=== PATIENT | female | born 1975 | race Caucasian/White ===

== ENCOUNTER 2019-04-18 19:39 | Emergency (ER) | payer BC, OTHER ==
[2019-04-18] MEDS ORDERED: NA CHLORIDE 0.9% 1,000 ML ONE (20:15)
--- NOTE | 2019-04-18 20:53 | RAD REPORT ---
EXAM DESCRIPTION: US - Abdomen Exam Limited - 04/18/2019 8:45 pm CLINICAL HISTORY: Abdominal pain. COMPARISON: None. FINDINGS: The gallbladder wall is not thickened. A gallstone is not seen. The biliary tree is normal caliber. IMPRESSION: Unremarkable gallbladder ultrasound.
[2019-04-18 20:58] LABS: Basophils % 0.6 % (0-1.3); Hematocrit 34.6 % (36.0-45.0); Lymphocytes % 29.1 % (15.3-44.8); MPV 7.8 fL (7.6-11.3)
[2019-04-18 21:05] LABS: Urine Blood NEGATIVE (NEG); Urine Glucose NEGATIVE (NEG); Urine Protein NEGATIVE (NEG); Urine Specific Gravity 1.015 (1.005-1.030); Urine pH 8.5 (5.0-7.0)
[2019-04-18 21:12] LABS: ALT/SGPT 17 U/L (12-78); AST/SGOT 15 U/L (15-37); Albumin 3.8 g/dL (3.4-5.0); Alkaline Phosphatase 64 U/L (45-117); BUN Blood Urea Nitrogen 16 mg/dL (7-18); Bicarbonate 30 mmol/L (21-32); Bilirubin Direct < 0.1 mg/dL (0-0.2); Bilirubin Total 0.3 mg/dL (0.2-1.0); Glucose Level 88 mg/dL (74-106); Lipase 165 U/L (73-393); Potassium 3.6 mmol/L (3.5-5.1); Protein, Total 7.4 g/dL (6.4-8.2); Sodium Level 139 mmol/L (136-145)
--- NOTE | 2019-04-18 22:57 | ER ---
Nurse's Notes [facility] Name: Lucille Osuna Age: 43 yrs Sex: Female : 1975 Arrival Date: 04/18/2019 Time: 19:43 Bed 25 Private MD: Diagnosis: Abdominal pain. Ruptured right ovarian cyst Presentation: 04/18 19:57 Presenting complaint: Patient states: she has been having abdominal since 1729 the pain bb is a dull ache which turns into a stabbing pain pt denies nausea or vomiting but had 2 episodes of diarrhea today. Transition of care: patient was not received from another setting of care. Onset of symptoms was April 18, 2019. Risk Assessment: Do you want to hurt yourself or someone else? Patient reports no desire to harm self or others. Initial Sepsis Screen: Does the patient meet any 2 criteria? No. Patient's initial sepsis screen is negative. Does the patient have a suspected source of infection? No. Patient's initial sepsis screen is negative. Care prior to arrival: None. 19:57 Method Of Arrival: Ambulatory bb 19:57 Acuity: JOSHUA 3 bb Triage Assessment: 19:59 General: Appears in no apparent distress. uncomfortable, Behavior is calm, cooperative. bb Pain: Complains of pain in abdomen Pain currently is 7 out of 10 on a pain scale. Pain began 1729. Neuro: Level of Consciousness is awake, alert, obeys commands, Oriented to person, place, time, situation. GI: Reports lower abdominal pain, diarrhea. 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 - Social history:: Smoking status: Patient/guardian denies using tobacco. - Ebola Screening: : No symptoms or risks identified at this time. Screenin:39 Abuse screen: Denies threats or abuse. Denies injuries from another. Nutritional mg2 screening: No deficits noted. Tuberculosis screening: No symptoms or risk factors identified. Fall Risk IV access (20 points). Assessment: 20:38 General: Appears in no apparent distress. comfortable, Behavior is calm, cooperative. mg2 Pain: Complains of pain in right upper quadrant Pain does not radiate. Pain currently is 3 out of 10 on a pain scale. Quality of pain is described as aching, sharp, Pain began gradually. Neuro: Level of Consciousness is awake, alert, obeys commands, Oriented to person, place, time, situation. Cardiovascular: Capillary refill < 3 seconds Patient's skin is warm and dry. Respiratory: Airway is patent Respiratory effort is even, unlabored, Respiratory pattern is regular, symmetrical. GI: Bowel sounds present X 4 quads. Abd is soft and non tender X 4 quads. Reports upper abdominal pain. : Urine is cloudy. EENT: No signs and/or symptoms were reported regarding the EENT system. Derm: Skin is intact, is healthy with good turgor, Skin is pink, warm \T\ dry. normal. Musculoskeletal: Circulation, motion, and sensation intact. Capillary refill < 3 seconds. 21:30 Reassessment: Patient appears in no apparent distress at this time. Patient and/or tr5 family updated on plan of care and expected duration. Pain level reassessed. Patient is alert, oriented x 3, equal unlabored respirations, skin warm/dry/pink. Vital Signs: 19:59 BP 119 / 84; Pulse 81; Resp 16 S; Temp 98.9(O); Pulse Ox 100% on R/A; Weight 72.57 kg bb (R); Height 5 ft. 1 in. (154.94 cm) (R); Pain 7/10; 21:00 BP 100 / 72; Pulse 76; Resp 16; Pulse Ox 100% on R/A; tr5 19:59 Body Mass Index 30.23 (72.57 kg, 154.94 cm) bb ED Course: 19:43 Patient arrived in ED. ds1 19:59 Triage completed. bb 19:59 Arm band placed on Patient placed in an exam room, on a stretcher, on pulse oximetry. bb 20:02 Devyn Brock MD is Attending Physician. pkl 20:14 Jayme Ratliff, JOESPH is Primary Nurse. mg2 20:39 Patient has correct armband on for positive identification. Pulse ox on. NIBP on. Door mg2 closed. Warm blanket given. 20:40 No provider procedures requiring assistance completed. Inserted saline lock: 20 gauge mg2 in right antecubital area, using aseptic technique. Blood collected. 20:45 US Abdomen Limited In Process Unspecified. EDMS 22:20 CT Abd/Pelvis - IV Contrast Only In Process Unspecified. EDMS 23:05 IV discontinued. tr5 Administered Medications: 20:38 Drug: NS 0.9% 1000 ml Route: IV; Rate: 125 ml/hr; Site: right antecubital; mg2 21:50 Drug: morphine 2 mg {Note: RASS:0.} Route: IVP; Site: right antecubital; tr5 23:05 Follow up: Response: Pain is decreased; RASS: Alert and Calm (0) tr5 21:50 Drug: Zofran 4 mg Route: IVP; Site: left antecubital; tr5 23:05 Follow up: Response: Marked relief of symptoms tr5 Outcome: 22:56 Discharge ordered by . tien 23:04 Discharged to home ambulatory. tr5 23:04 Condition: stable 23:04 Discharge instructions given to patient, family, Instructed on discharge instructions, follow up and referral plans. medication usage, Demonstrated understanding of instructions, follow-up care, medications, Prescriptions given X 2. 23:06 Patient left the ED. tr5 Signatures: Dispatcher [employer] Devyn Garibay MD MD pkl Sanford, Demi ds1 Raven Poole RN RN bb Jayme Ratliff RN RN mg2 Davey Renteria RN RN tr5
--- NOTE | 2019-04-18 22:57 | EDPHYS ---
Physician Documentation [facility] Name: Lucille Osuna Age: 43 yrs Sex: Female : 1975 Arrival Date: 04/18/2019 Time: 19:43 Bed 25 Private MD: ED Physician Devyn Brock HPI: 04/18 20:12 This 43 yrs old Female presents to ER via Ambulatory with complaints of pkl Abdominal Pain. 20:12 The patient presents with abdominal pain in the right upper quadrant. Onset: The pkl symptoms/episode began/occurred just prior to arrival, 3 hour(s) ago. Associated signs and symptoms: Pertinent positives: nausea. The symptoms are described as dull, stabbing. 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 - Social history:: Smoking status: Patient/guardian denies using tobacco. - Ebola Screening: : No symptoms or risks identified at this time. ROS: 20:12 Eyes: Negative for injury, pain, redness, and discharge, ENT: Negative for injury, pkl pain, and discharge, Neck: Negative for injury, pain, and swelling, Cardiovascular: Negative for chest pain, palpitations, and edema, Respiratory: Negative for shortness of breath, cough, wheezing, and pleuritic chest pain. 20:12 Abdomen/GI: Positive for abdominal pain, of the right upper quadrant. 20:12 Back: Negative for acute changes. 20:12 : Negative for urinary symptoms. 20:12 MS/extremity: Negative for acute changes. 20:12 Skin: Negative for rash. 20:12 Neuro: Negative for altered mental status. Exam: 20:12 Head/Face: Normocephalic, atraumatic. Eyes: Pupils equal round and reactive to light, pkl extra-ocular motions intact. Lids and lashes normal. Conjunctiva and sclera are non-icteric and not injected. Cornea within normal limits. Periorbital areas with no swelling, redness, or edema. ENT: Nares patent. No nasal discharge, no septal abnormalities noted. Tympanic membranes are normal and external auditory canals are clear. Oropharynx with no redness, swelling, or masses, exudates, or evidence of obstruction, uvula midline. Mucous membranes moist. Neck: Trachea midline, no thyromegaly or masses palpated, and no cervical lymphadenopathy. Supple, full range of motion without nuchal rigidity, or vertebral point tenderness. No Meningismus. Chest/axilla: Normal chest wall appearance and motion. Nontender with no deformity. No lesions are appreciated. Cardiovascular: Regular rate and rhythm with a normal S1 and S2. No gallops, murmurs, or rubs. Normal PMI, no JVD. No pulse deficits. Respiratory: Lungs have equal breath sounds bilaterally, clear to auscultation and percussion. No rales, rhonchi or wheezes noted. No increased work of breathing, no retractions or nasal flaring. 20:12 Abdomen/GI: Bowel sounds: normal, Palpation: soft, mild abdominal tenderness, in the right upper quadrant. 20:12 Back: Exam negative for acute changes. 20:12 : Exam negative for acute changes. 20:12 Musculoskeletal/extremity: Exam is negative for acute changes. 20:12 Skin: Exam negative for rash. 20:12 Neuro: Orientation: is normal, Mentation: is normal, Cranial nerves: grossly normal, Motor: is normal. Vital Signs: 19:59 BP 119 / 84; Pulse 81; Resp 16 S; Temp 98.9(O); Pulse Ox 100% on R/A; Weight 72.57 kg bb (R); Height 5 ft. 1 in. (154.94 cm) (R); Pain 7/10; 21:00 BP 100 / 72; Pulse 76; Resp 16; Pulse Ox 100% on R/A; tr5 19:59 Body Mass Index 30.23 (72.57 kg, 154.94 cm) bb MDM: 20:02 Patient medically screened. pkl 22:54 Data reviewed: vital signs, nurses notes, lab test result(s), radiologic studies, CT pkl scan, ultrasound. 04/18 20:11 Order name: Basic Metabolic Panel; Complete Time: 21:36 pkl 04/18 20:11 Order name: CBC with Diff; Complete Time: 21:36 pkl 04/18 20:11 Order name: Creatinine for Radiology; Complete Time: 21:36 pkl 04/18 20:11 Order name: Hepatic Function; Complete Time: 21:36 pkl 04/18 20:11 Order name: Lipase; Complete Time: 21:36 pkl 04/18 20:38 Order name: Urine Dipstick--Ancillary (enter results); Complete Time: 21:36 ar5 04/18 20:11 Order name: IV Saline Lock; Complete Time: 20:38 pkl 04/18 20:11 Order name: Labs collected and sent; Complete Time: 20:38 pkl 04/18 20:11 Order name: US Abdomen Limited; Complete Time: 21:36 pkl 04/18 20:38 Order name: Urine --Ancillary (enter results); Complete Time: 21:36 ar5 04/18 21:40 Order name: CT Abd/Pelvis - IV Contrast Only pkl Administered Medications: 20:38 Drug: NS 0.9% 1000 ml Route: IV; Rate: 125 ml/hr; Site: right antecubital; mg2 21:50 Drug: morphine 2 mg {Note: RASS:0.} Route: IVP; Site: right antecubital; tr5 23:05 Follow up: Response: Pain is decreased; RASS: Alert and Calm (0) tr5 21:50 Drug: Zofran 4 mg Route: IVP; Site: left antecubital; tr5 23:05 Follow up: Response: Marked relief of symptoms tr5 Disposition: 04/18/19 22:56 Discharged to Home. Impression: Abdominal pain. Ruptured right ovarian cyst. - Condition is Stable. - Prescriptions for Ultram 50 mg Oral Tablet - take 1 tablet by ORAL route every 8 hours As needed; 12 tablet. Zofran 4 mg Oral Tablet - take 1 tablet by ORAL route every 12 hours As needed; 6 tablet. - Medication Reconciliation Form, Thank You Letter, Antibiotic Education, Prescription Opioid Use form. - Follow up: Private Physician; When: 2 - 3 days; Reason: Re-evaluation by your physician. - Problem is new. - Symptoms have improved. Signatures: Dispatcher [employer] EDMS Devyn Brock MD MD pkl Ballard, Brenda, RN RN bb Jayme Ratliff RN RN mg2 Rodriguez, Tommie, RN RN tr5 Corrections: (The following items were deleted from the chart) 23:06 22:56 04/18/2019 22:56 Discharged to Home. Impression: Abdominal pain. Ruptured right tr5 ovarian cyst. Condition is Stable. Forms are Medication Reconciliation Form, Thank You Letter, Antibiotic Education, Prescription Opioid Use. Follow up: Private Physician; When: 2 - 3 days; Reason: Re-evaluation by your physician. Problem is new. Symptoms have improved. pkl
[2019-04-18 23:26] VITALS: TEMP 98.9; O2SAT 100
[2019-04-18 23:28] VITALS: BP 100/72
--- NOTE | 2019-04-19 11:24 | RAD REPORT ---
EXAM DESCRIPTION: CT - Abdomen Pelvis W Contrast - 04/19/2019 12:48 am CLINICAL HISTORY: 43 years Female ABD PAIN TECHNIQUE: Contiguous axial images obtained through the abdomen and pelvis following intravenous con trast administration. Coronal and sagittal reformatted images provided. This CT exam was performed according to our departmental dose-optimization program, which includes on e or more of the following dose reduction techniques: automated exposure control, adjustment of the m A and/or kV according to patient size, and/or use of iterative reconstruction technique. COMPARISON: No prior exams provided for comparison. FINDINGS: Small collapsed right ovarian corpus luteum with trace free fluid in the cul-de-sac. Kiera l left ovary. Intrauterine device in place. No bowel inflammation, obstruction, or free intraperitoneal air. Normal appendix. Minimal atelectasis at the lung bases. The liver, biliary tree, gallbladder, pancreas, spleen, adrena l glands, kidneys, urinary bladder, and osseous structures demonstrate no acute findings. Small bilat eral renal cysts. IMPRESSION: Small collapsed right ovarian corpus luteum with trace free fluid in the cul-de-sac are physiologic in appearance. No acute abdominal or pelvic abnormalities. Electronically signed by: Jailene Simmons MD 04/18/2019 10:46 PM VP TREASURER Due to temporary technical issues with the PACS/Fluency reporting system, reports are being signed by the in house radiologist as a courtesy to ensure prompt reporting. The interpreting radiologist is f ully responsible for the content of the report.
== END 2019-04-18 23:06 | disposition home or self-care (01) ==
LOC: ER 19:39
DX: N83.201 Unspecified ovarian cyst, right side (principal)
CPT/HCPCS: 85025; 80048; 36415; 81025; 80076; 81003; 83690; 74177; 76705; 96375; 96374; 99284; Q9967; J7030

== ENCOUNTER 2024-05-02 23:34 | Emergency (ER) | payer SELFPAY ==
--- OUTSIDE RECORDS SUMMARY | 2024-05-02 23:37 | XMS REPORT | Continuity of Care Document ---
Author Name Unknown Address [address] [facility] [address] [place] [address] [facility] thconnect Address [address] [facility] [address] [place] [address] Care Team Providers Care Production Supervisor Name Role Phone Rajwinder Ramachandran Primary Care Physician [phone] CEDRICK JARRELL Attending Clinician UnavailCEDRICK Holland Attending Clinician Unavailab RAJWINDER Tamayo Attending Clinician Unavailable AMANDA THOMPSON Attending Clinician Unavailable Rajwinder Ramachandran Attending Clinician 2, [facility] Attending Clinician Unavailable Payers Payer Name Policy Type Policy Number Effective Date Expirati on Date Source [facility] [id number] 2023 00:00:00 Allergies, Adverse Reactions, Alerts Allergy Name Allergy Type Status Severity Reaction(s) Onset Date Inactive Date Treating Clinician Comments Source Fluoride Propensi ty to adverse reaction s Active Swelling 07-06 00:00: 00 [facility] FLUORIDE DRUG INGREDI Active Swelling 07-06 00:00: 00 [facility] NO KNOWN ALLERGIE S Drug Class Active [facility] Social History Social Habit Start Date Stop Date Quantity Comments Source Sexual [facility] Alcoholic beverage intake 2024-01-09 00:00:00 2024-01-09 00:00:00 Lifetime non-drinker (finding) [facility] Tobacco use and exposure 2023-07-06 00:00:00 2023-07-06 00:00:00 Smokeless tobacco non-user [facility] Alcohol intake 2023-07-06 00:00:00 2023-07-06 00:00:00 Lifetime non-drinker (finding) [facility] History of Social function 2023-07-06 00:00:00 2023-07-06 00:00:00 [facility] Sex assigned at 1975 00:00:00 1975 00:00:00 [facility] Smoking Status Start Date Stop Date Source Never smoked tobacco [facility] Medications Ordered Medication Name Filled Medication Name Start Date Stop Date Current Medication? Ordering Clinician Indication Dosage Frequency Signature (SIG) Comments Components Source EPINEPHrine (EPIPEN) 0.3 mg/0.3 mL injection 01-08 00:00: 00 Yes [id number] .3mg 0.3 mL by Intramuscu lar route as needed for Allergic reaction. [facility] predniSONE 5 mg tablet 01-08 00:00: 00 Yes [id number] TAKE 4 TABLETS X 5 DAYS, 3 TABLETS X 5 DAYS, 2 TABLETS X 5 DAYS, 1 TABLET X 5 DAYS THEN STOP [facility] predniSONE 5 mg tablet 611 00:00: 00 01-08 00:00 :00 No 5mg Take 1 tablet by mouth in the morning. TAKE 4 TABLETS X 5 DAYS, 3 TABLETS X 5 DAYS, 2 TABLETS X 5 DAYS, 1 TABLET X 5 DAYS THEN STOP50 tablets [facility] Vital Signs Vital Name Observation Time Observation Value Comments S vazquez Systolic blood pressure 2024-01-09 16:40:00 100 mm[Hg] [facility] Diastolic blood pressure 2024-01-09 16:40:00 66 mm[Hg] [facility] Heart rate 2024-01-09 16:40:00 81 /min Unive [facility] Body temperature 2024-01-09 16:40:[address] [facility] Body height 2024-01-09 16:40:00 154.9 cm [facility] Body weight 2024-01-09 16:40:00 84.006 kg [facility] BMI 2024-01-09 16:40:00 34.99 kg/m2 [facility] Oxygen saturation in Arterial blood by Pulse oximetry 2024-01-09 16:40:00 100 /min [facility] Systolic blood pressure 2023-07-06 20:33:00 118 mm[Hg] [facility] Diastolic blood pressure 2023-07-06 20:33:00 76 mm[Hg] [facility] Heart rate 2023-07-06 20:33:00 78 /min [facility] Body temperature 2023-07-06 20:33:[address] [facility] Respiratory rate 2023-07-06 20:33:00 18 /min [facility] Body height 2023-07-06 20:33:00 162.6 cm [facility] Body weight 2023-07-06 20:33:00 84.052 kg [facility] BMI 2023-07-06 20:33:00 31.81 kg/m2 [facility] Oxygen saturation in Arterial blood by Pulse oximetry 2023-07-06 20:33:00 100 /min [facility] Procedures Procedure Date / Time Performed Performing Clinician Source FREE T4 2023-07-06 21:11:00 Rajwinder Tompkins [facility] THYROID STIMULATING HORMONE 2023-07-06 21:11:[address] [facility] COMP. METABOLIC PANEL (19157) 2023-07-06 21:11:[address] [facility] LIPID PANEL (21826)(TOTAL CHOLESTEROL, TRIGLYCERIDES, HDL) 2023-07-06 21:11:[address] [facility] CBC WITH DIFF 2023-07-06 21:11:00 Rajiwnder Tompkins [facility] GLYCOSYLATED HEMOGLOBIN (A1C) 2023-07-06 21:11:[address] [facility] URINALYSIS 2023-07-06 21:11:00 Rajwinder Tompkins [facility] HCV ANTIBODY 2023-07-06 21:11:00 Rajwinder Tompkins [facility] Encounters Start Date/Time End Date/Time Encounter Type Admission Type Attending [facility] Care Department Encounter ID Source 2024-01-09 11:30:00 2024-01-09 12:17:39 Outpatient R CHRYSTALLIZ SUAREZKeerthiGuillermo CHRYSTAL CEDRICK [facility] [id number] [facility] 2024-01-09 11:30:00 2024-01-09 12:17:39 Office Visit ChrystalToshia suarezritu [facility] [id number] [facility] 2024-01-05 10:00:00 2024-01-05 10:00:00 Outpatient R CHRYSTAL TOSHIADARIUSGuillermo JARRELL CEDRICK [facility] [id number] [facility] 2023-07-27 09:00:00 2023-07-27 09:00:00 Outpatient R AMANDA THOMPSON [facility] [id number] [facility] 2023-07-17 10:30:00 2023-07-17 10:30:00 Outpatient RAJWINDER GARCIA [facility] [id number] [facility] 2023-07-13 08:30:00 2023-07-13 08:30:00 Outpatient AMANDA JAVED [facility] [id number] [facility] 2023-07-12 00:00:00 2023-07-12 00:00:00 Telephone [facility] [id number] [facility] 2023-07-06 16:00:00 2023-07-06 16:00:00 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 [id number] [id number] [id number] [facility] 2023-07-06 14:00:00 2023-07-06 14:52:17 Outpatient R NARENDRA [facility]UL [facility] [id number] [facility] 2023-07-06 14:00:00 2023-07-06 14:52:17 Office Visit Rajwinder Tompkins [facility] [id number] [id number] [id number] [facility] Results Test Description Test Time Test Comments Results Result Co mments Source [facility] [id number] 11:18:04* Test Item Value Reference Range Interpretation Comme nts HCV Ab (test code = 74888-5) Negative HCV Semi-Quantitative (test code = 19042-7) 0.01 [facility]2023-07-07 01:21:35* Test Item Value Reference Range Interpretation Comme [facility] HGB A1C (test code = 4548-4) 5.2 % 4.0-5.7 LIZZETTE (test code = LIZZETTE) Reference RangesNormal: <5.7%Prediabetes: 5.7 - 6.4%Diabetes: > 6.5% Lab Interpretation (test code = 26744-0) Normal [facility]A1C)2023-07-07 01:21:35* Test Item Value Reference Range Interpretation Comme [facility] HGB A1C (test code = 4548-4) 5.2 % 4.0-5.7 LIZZETTE (test code = LIZZETTE) Reference RangesNormal: <5.7%Prediabetes: 5.7 - 6.4%Diabetes: > 6.5% Lab Interpretation (test code = 58515-0) Normal [facility] with [id number] 22:06:49* Test Item Value Reference Range Interpretation Comme nts WBC (test code = 6690-2) 6.41 See_Comment [Automated messa ge] The system which generated this result transmitted reference range: 4.30 - 11.10 10*3/?L. The reference range was not used to interpret this result as normal/abnormal. RBC (test code = 789-8) 4.13 See_Comment [Automated Furiousa ge] The system which generated this result transmitted reference range: 3.93 - 5.25 10*6/?L. The reference range was not used to interpret this result as normal/abnormal. HGB (test code = 718-7) 12.6 g/dL 11.6-15.0 HCT (test code = 4544-3) 38.1 % 35.7-45.2 MCV (test code = 787-2) 92.3 fL 80.6-95.5 MCH (test code = 785-6) 30.5 pg 25.9-32.8 MCHC (test code = 786-4) 33.1 g/dL 31.6-35.1 RDW-SD (test code = 53080-5) 43.7 fL 39.0-49.9 RDW-CV (test code = 788-0) 13.1 % 12.0-15.5 PLT (test code = 777-3) 298 See_Comment [Automated Furiousa ge] The system which generated this result transmitted reference range: 166 - 358 10*3/?L. The reference range was not used to interpret this result as normal/abnormal. MPV (test code = 95423-2) 9.7 fL 9.5-12.9 NRBC/100 WBC (test code = 7915686086) 0.0 See_Comment [Automated me ssage] The system which generated this result transmitted reference range: 0.0 - 10.0 /100 WBCs. The reference range was not used to interpret this result as normal/abnormal. NRBC x10^3 (test code = 9864488239) See_Comment [Automated me ssage] The system which generated this result transmitted reference range: 10*3/?L. The reference range was not used to interpret this result as normal/abnormal. GRAN MAT (NEUT) % (test code = 770-8) 61.5 % IMM GRAN % (test code = 1451319129) 0.20 % LYMPH % (test code = 736-9) 27.0 % MONO % (test code = 5905-5) 5.1 % EOS % (test code = 713-8) 5.6 % BASO % (test code = 706-2) 0.6 % GRAN MAT x10^3(ANC) (test code = 8375264862) 3.94 10*3/uL 1.88-7.09 IMM GRAN x10^3 (test code = 0415992206) 0.00-0.06 LYMPH x10^3 (test code = 731-0) 1.73 10*3/uL 1.32-3.29 MONO x10^3 (test code = 742-7) 0.33 10*3/uL 0.33-0.92 EOS x10^3 (test code = 711-2) 0.36 10*3/uL 0.03-0.39 BASO x10^3 (test code = 704-7) 0.04 10*3/uL 0.01-0.07 [facility] with [id number] 22:06:49* Test Item Value Reference Range Interpretation Comme nts WBC (test code = 6690-2) 6.41 See_Comment [Automated Furiousa ge] The system which generated this result transmitted reference range: 4.30 - 11.10 10*3/?L. The reference range was not used to interpret this result as normal/abnormal. RBC (test code = 789-8) 4.13 See_Comment [Automated Furiousa ge] The system which generated this result transmitted reference range: 3.93 - 5.25 10*6/?L. The reference range was not used to interpret this result as normal/abnormal. HGB (test code = 718-7) 12.6 g/dL 11.6-15.0 HCT (test code = 4544-3) 38.1 % 35.7-45.2 MCV (test code = 787-2) 92.3 fL 80.6-95.5 MCH (test code = 785-6) 30.5 pg 25.9-32.8 MCHC (test code = 786-4) 33.1 g/dL 31.6-35.1 RDW-SD (test code = 90999-7) 43.7 fL 39.0-49.9 RDW-CV (test code = 788-0) 13.1 % 12.0-15.5 PLT (test code = 777-3) 298 See_Comment [Automated messa ge] The system which generated this result transmitted reference range: 166 - 358 10*3/?L. The reference range was not used to interpret this result as normal/abnormal. MPV (test code = 20007-5) 9.7 fL 9.5-12.9 NRBC/100 WBC (test code = 6176398256) 0.0 See_Comment [Automated me ssage] The system which generated this result transmitted reference range: 0.0 - 10.0 /100 WBCs. The reference range was not used to interpret this result as normal/abnormal. NRBC x10^3 (test code = 7067938757) See_Comment [Automated me ssage] The system which generated this result transmitted reference range: 10*3/?L. The reference range was not used to interpret this result as normal/abnormal. GRAN MAT (NEUT) % (test code = 770-8) 61.5 % IMM GRAN % (test code = 8589286213) 0.20 % LYMPH % (test code = 736-9) 27.0 % MONO % (test code = 5905-5) 5.1 % EOS % (test code = 713-8) 5.6 % BASO % (test code = 706-2) 0.6 % GRAN MAT x10^3(ANC) (test code = 3596481608) 3.94 10*3/uL 1.88-7.09 IMM GRAN x10^3 (test code = 1201565438) 0.00-0.06 LYMPH x10^3 (test code = 731-0) 1.73 10*3/uL 1.32-3.29 MONO x10^3 (test code = 742-7) 0.33 10*3/uL 0.33-0.92 EOS x10^3 (test code = 711-2) 0.36 10*3/uL 0.03-0.39 BASO x10^3 (test code = 704-7) 0.04 10*3/uL 0.01-0.07 [facility] Notes Date/Time Note Provider Source 2023-07-14 14:05:44 Spoke with patient and informed jai message below. TOR Dorothy Valles MA [facility] 2023-07-14 14:00:53 Unfortunately I do not have records of her most recent PAP Does she have a date of her last PAP? I know her OBGYN has retired [facility] 2023-07-12 14:42:23 Routing to provider. [facility] 2023-07-12 14:34:19 Lucille Osuna is a 48 year old female Pt states today is her last day of her insurance and wanted to know if CLAYTON Tompkins can place a script for the Nuva Ring sent too [facility] in [place] today if possible. TOR Kiera Dhaliwal [facility] 2023-07-06 16:00:00 Images from the original note were not included. Venipuncture collection performed by clean technique on the right anticubitus. Total of 1 attempts were made. Slight pressure and a bandage/dressing were applied to the site(s). The patient experienced no complications. The following specimens were processed according to instructions and sent to [facility] laboratories per lab order on 07/06/2023 : LT BLUE SST 2 RED LAV 2 PPT DK GREEN (LiHep) DK GREEN (SodH) GRIMES DK BLUE (K2) DK BLUE (S) ACD Blood Culture NIPT/NTD Patient has been identified by and name and was provided with cup, antiseptic towelette, and clean catch instructions. 1 urine specimen(s) sent. Unpreserved 1 Urine Culture Aptima tube Other urine [facility]
[2024-05-03] MEDS ORDERED: NA CHLORIDE 0.9% 500 ML ONE (00:48)
[2024-05-03 00:49] LABS: Calcium Oxalate Crystals- Ur Few /HPF (None Seen); Specific Gravity > 1.030 (1.005-1.030); Urine Bacteria 20-50 /HPF (<20); Urine Bilirubin NEGATIVE (Negative); Urine Blood 3+ (OVER) (Negative); Urine Clarity Extremely Turbid (Clear); Urine Color Yellow (Yellow); Urine Culture Reflex Order REFLEXED; Urine Glucose NEGATIVE (Negative); Urine Ketones TRACE (Negative); Urine Microscopic Reflex YN ORDER UMIC; Urine Mucus 4+ /HPF (None Seen); Urine Nitrite NEGATIVE (Negative); Urine Protein 1+ (Negative); Urine Urobilinogen 1+ (Normal)
[2024-05-03 00:53] LABS: Absolute Basophils 0.1 K/uL (0-0.5); Absolute Eosinophils 0.3 K/uL (0-0.5); Absolute Lymphocytes (CBC) 1.1 K/uL (0.7-4.9); Absolute Monocytes 0.5 K/uL (0.1-1.3); Absolute Neutrophil 5.4 K/uL (1.8-8.0); Basophils % 0.9 % (0-1.3); Hematocrit 39.5 % (36.0-45.0); Hemoglobin 13.2 g/dL (12.0-15.0); Lymphocytes % 15.2 % (15.3-44.8); MCH 30.4 pg (27.0-35.0); MCHC 33.5 g/dL (32.0-36.0); MCV 90.9 fL (80-100); MPV 7.5 fL (7.6-11.3); Monocytes % 6.7 % (3.3-12.3); Neutrophils % 73.2 % (41.7-73.7); Platelets 304 thou/uL (152-406); RBC Red Blood Cell Count 4.35 M/uL (3.86-4.86); Red Cell Distribution Width 14.3 % (12.1-15.2)
[2024-05-03 01:03] LABS: Anion Gap 7.5 mEq/L (5.0-15.0); BUN Blood Urea Nitrogen 19 mg/dL (7-18); Bicarbonate 27 mEq/L (21-32); Glomerular Filtration Rate 78 ml/min (=/>90); Glucose Level 120 mg/dL (74-106); Potassium 3.5 mEq/L (3.5-5.1); Sodium Level 141 mEq/L (136-145)
[2024-05-03 01:06] LABS: HCG, Quantitative < 1 mIU/mL (1-3)
[2024-05-03 01:17] LABS: SARS-CoV-2 Antigen CONTROL BLUE LINE VIS/BG OK; SARS-CoV-2 Antigen Rapid Res Negative (Negative)
--- NOTE | 2024-05-03 02:17 | RAD REPORT ---
EXAM DESCRIPTION: Transvaginal OB CLINICAL HISTORY: 48 years Female, Miscarriage 1 week ago COMPARISON: None. TECHNIQUE: Complete first trimester obstetrical ultrasound obtained with transvaginal imaging. FINDINGS: Uterus: The uterus measures 6.5 x 5.1 x 5.1 cm. Endometrial thickness of 1.3 cm. Gestational sac: Not identified. pole: Not identified. heart motion: Not identified. Yolk sac: Not identified. Placenta: Not identified. Right ovary: The right ovary measures 3.3 x 2.5 x 2.1 cm. Left ovary: The left ovary is not visualized due to overlying bowel gas. Adnexa: Additional adnexal findings. Free fluid: No free fluid. Duplex imaging: Color and spectral Doppler imaging demonstrate blood flow in the ovaries. IMPRESSION: 1. No intrauterine identified. No ultrasound evidence of retained products of conception. Electronically signed by: Amadou Vargas DO 05/03/2024 02:14 AM [facility] 4ZDM Due to temporary technical issues with the PACS/Emergent Labsibe reporting system, reports are being signed by the in-house radiologist without review as a courtesy to ensure prompt reporting. The interpreting radiologist is fully responsible for the content of the report. Transcribed Date/Time: 05/03/2024 2:17 AM
--- NOTE | 2024-05-03 02:18 | EDPHYS ---
Physician Documentation [facility] Name: Lucille Osuna Age: 48 yrs Sex: Female : 1975 Arrival Date: 05/02/2024 Time: 23:34 Bed 15 Private MD: ED Physician Estrellita Her HPI: 05/03 00:13 This 48 yrs old Female presents to ER via Ambulatory with complaints of Fever, sp3 Dizziness. 00:13 48-year-old female with no reported past medical history presents with dizziness and sp3 fatigue with concerns of anemia. Patient states that she had a spontaneous miscarriage when she "did not even know she was " with an approximate time period from her prior menses of 10 weeks. Patient states she was 3 hours away from the nearest hospital and had a miscarriage consisting of tissue and bleeding. She has had continued bleeding since then with only spotting currently. She denies any abdominal pain or cramping, dysuria, urinary frequency, vaginal discharge just spotting. She has not sought any medical care since that event. Yesterday she reported fever subjectively with bodyaches. She also states that both of her children have been "sick from getting bugs at school". No objectively documented fever however patient states that she felt subjectively fever only. She denies any cough, sore throat, vomiting, diarrhea or any other signs or symptoms on ROS.. 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 - Infectious Disease History:: Denies. - Social history:: Smoking status: Patient denies any tobacco usage or history of. ROS: 00:15 Eyes: Negative for injury, pain, redness, and discharge, Neck: Negative for injury, sp3 pain, and swelling, Cardiovascular: Negative for chest pain, palpitations, and edema, Abdomen/GI: Negative for abdominal pain, nausea, vomiting, diarrhea, and constipation, Back: Negative for injury and pain, MS/Extremity: Negative for injury and deformity, Skin: Negative for injury, rash, and discoloration, Neuro: Negative for headache, weakness, numbness, tingling, and seizure, Psych: Negative for depression, anxiety, suicide ideation, homicidal ideation, and hallucinations, Allergy/Immunology: Negative for hives, rash, and allergies, Endocrine: Negative for neck swelling, polydipsia, polyuria, polyphagia, and marked weight changes, 00:15 All other systems are negative, Exam: 00:16 Constitutional: This is a well developed, well nourished patient who is awake, alert, sp3 and in no acute distress. Head/Face: Normocephalic, atraumatic. Eyes: Pupils equal round and reactive to light, extra-ocular motions intact. Lids and lashes normal. Conjunctiva and sclera are non-icteric and not injected. Cornea within normal limits. Periorbital areas with no swelling, redness, or edema. ENT: Nares patent. No nasal discharge, no septal abnormalities noted. External auditory canals are clear. Oropharynx with no redness, swelling, or masses, exudates, or evidence of obstruction, uvula midline. Mucous membranes moist. Neck: Trachea midline, no thyromegaly or masses palpated, and no cervical lymphadenopathy. Supple, full range of motion without nuchal rigidity, or vertebral point tenderness. No Meningismus. Chest/axilla: Normal chest wall appearance and motion. Nontender with no deformity. No lesions are appreciated. Cardiovascular: Regular rate and rhythm with a normal S1 and S2. No gallops, murmurs, or rubs. Normal PMI, no JVD. No pulse deficits. Respiratory: Lungs have equal breath sounds bilaterally, clear to auscultation and percussion. No rales, rhonchi or wheezes noted. No increased work of breathing, no retractions or nasal flaring. Abdomen/GI: Soft, non-tender, with normal bowel sounds. No distension or tympany. No guarding or rebound. No evidence of tenderness throughout. Back: No spinal tenderness. No costovertebral tenderness. Full range of motion. Skin: Warm, dry with normal turgor. Normal color with no rashes, no lesions, and no evidence of cellulitis. MS/ Extremity: Pulses equal, no cyanosis. Neurovascular intact. Full, normal range of motion. Neuro: Awake and alert, GCS 15, oriented to person, place, time, and situation. Cranial nerves II-XII grossly intact. Motor strength 5/5 in all extremities. Sensory grossly intact. Cerebellar exam normal. Normal gait. Psych: Awake, alert, with orientation to person, place and time. Behavior, mood, and affect are within normal limits. Vital Signs: 05/02 23:47 BP 119 / 83; Pulse 83; Resp 17 S; Temp 97.4; Pulse Ox 99% on R/A; Weight 74.84 kg; ha1 Height 5 ft. 3 in. ; 05/03 00:36 BP 115 / 81; Pulse 81; Resp 16; Pulse Ox 98% ; Pain 0/10; dd2 01:30 BP 119 / 83; Pulse 79; Resp 16; Pulse Ox 99% ; dd2 02:36 BP 110 / 78; Pulse 78; Resp 16; Pulse Ox 100% ; dd2 02:56 BP 116 / 75; Pulse 76; Resp 16; Temp 98.1; Pulse Ox 99% ; Pain 0/10; dd2 05/02 23:47 Body Mass Index 29.23 (74.84 kg, 160.02 cm) ha1 05/03 00:36 Pain Scale: Adult dd2 02:56 Pain Scale: Adult dd2 [place] Coma Score: 00:36 Eye Response: spontaneous(4). Motor Response: obeys commands(6). Verbal Response: dd2 oriented(5). Total: 15. MDM: 05/02 23:37 Medical Screening Exam initiated sp3 05/03 00:16 Data reviewed: vital signs, nurses notes, lab test result(s), radiologic studies. ED sp3 course: 38-year-old female with no past medical history now with dizziness and fatigue with probable miscarriage and continued very mild vaginal bleeding without seeking any medical care to date. She also reports fever possible infectious light. Differential diagnosis includes viral illness, anemia, and to a much lower extent or likelihood of retained products of conception. No abdominal tenderness noted so ureteritis is very low on the differential. Workup will include ultrasound of the transvaginal approach, laboratory values, UA and swabs with IV fluids and general supportive care. If workup negative we will safely discharge patient home to PCP follow-up.. 02:17 ED course: Workup negative, ultrasound negative for any retained products, hCG sp3 negative. Patient has positive UTI on UA and we will administer Rocephin IV and discharge her home on Bactrim p.o.. 05/03 00:13 Order name: Abo/rh Typing; Complete Time: 02:16 sp3 05/03 00:13 Order name: Basic Metabolic Panel; Complete Time: 02:16 sp3 05/03 00:13 Order name: CBC with Diff; Complete Time: 02:16 sp3 05/03 00:13 Order name: Quantitative Hcg; Complete Time: 02:16 sp3 05/03 00:13 Order name: Urinalysis w/ reflexes; Complete Time: 02:16 sp3 05/03 00:13 Order name: SARS RAPID; Complete Time: 02:16 sp3 05/03 00:13 Order name: Flu; Complete Time: 02:16 sp3 05/03 00:52 Order name: Urine Culture EDMS 05/03 00:13 Order name: US Transvaginal Ob; Complete Time: 02:19 sp3 05/03 00:13 Order name: IV Saline Lock; Complete Time: 00:35 sp3 05/03 00:13 Order name: Labs collected and sent; Complete Time: 00:35 sp3 05/03 00:13 Order name: NPO; Complete Time: 00:35 sp3 Administered Medications: 00:55 Drug: NS 0.9% IV 500 ml IV at calculated rate once; to be given as a bolus over 30 dd2 minutes Route: IV; Rate: calculated rate; Site: right antecubital; 01:10 Follow up: Response: No adverse reaction dd2 01:25 Follow up: IV Status: Completed infusion; IV Intake: 500ml dd2 02:52 Drug: Rocephin IV 1 grams IV at calculated rate once; Given slow IV push per pharmacy dd2 instructions Route: IV; Rate: calculated rate; Site: right antecubital; 03:06 Follow up: Response: Medication administered at discharge.; IV Status: Completed dd2 infusion Disposition Summary: 05/03/24 02:18 Discharge Ordered Notes: Location: Home sp3 Condition: Stable sp3 Diagnosis - UTI sp3 Followup: sp3 - With: Private Physician - When: Upon discharge from the Emergency Department - Reason: Continuance of care Discharge Instructions: - Discharge Summary Sheet sp3 - Urinary Tract Infection, Adult sp3 Forms: - Medication Reconciliation Form sp3 - Antibiotic Education sp3 - Prescription Opioid Use sp3 - Patient Portal Instructions sp3 - Leadership Thank You Letter sp3 Prescriptions: - Bactrim DS 800-160 mg Oral Tablet - take 1 tablet ORAL route every 12 hours for 3 days; 6 tablet; Refills: 0, sp3 Product Selection Permitted Signatures: Dispatcher [employer] Estrellita Shaw MD MD sp3 Verna Do RN RN ha1 GLADIS WILLOUGHBY RN RN dd2
--- NOTE | 2024-05-03 02:18 | ER ---
Nurse's Notes [facility] Name: Lucille Osuna Age: 48 yrs Sex: Female : 1975 Arrival Date: 05/02/2024 Time: 23:34 Bed 15 Private MD: Diagnosis: UTI Presentation: 05/02 23:47 Chief complaint: Patient states: MISCARRIAGE ONE WEEK AGO, FEELING DIZZY, AND WEAK. ha1 23:47 Coronavirus screen: Vaccine status: Patient reports being unvaccinated. Ebola Screen: ha1 No symptoms or risks identified at this time. Initial Sepsis Screen: Does the patient meet any 2 criteria? No. Patient's initial sepsis screen is negative. Does the patient have a suspected source of infection? No. Patient's initial sepsis screen is negative. Risk Assessment: Do you want to hurt yourself or someone else? Patient reports no desire to harm self or others. Onset of symptoms was May 03, 2024. 23:47 Method Of Arrival: Ambulatory ha1 23:47 Acuity: JOSHUA 3 ha1 Triage Assessment: 23:47 General: Appears uncomfortable, Behavior is calm, cooperative. Pain: Denies pain. ha1 Neuro: Level of Consciousness is awake, alert, obeys commands, Oriented to person, place, time, situation. 23:47 Neuro: Reports dizziness, weakness. Cardiovascular: Patient's skin is warm and dry. ha1 Respiratory: Airway is patent Respiratory effort is even, unlabored, Respiratory pattern is regular, symmetrical. Derm: Skin is pink, warm \T\ dry. Musculoskeletal: Circulation, motion, and sensation intact. Range of motion: intact in all extremities. 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 - Infectious Disease History:: Denies. - Social history:: Smoking status: Patient denies any tobacco usage or history of. Screenin:36 [facility] ED Fall Risk Assessment (Adult) History of falling in the last 3 months, dd2 including since admission No falls in past 3 months (0 pts) Confusion or Disorientation No (0 pts) Intoxicated or Sedated No (0 pts) Impaired Gait No (0 pts) Mobility Assist Device Used No (0 pt) Altered Elimination No (0 pt) Score/Fall Risk Level 0 - 2 = Low Risk Oriented to surroundings, Maintained a safe environment, Educated pt \T\ family on fall prevention, incl call for assistance when getting out of bed, Assessed \T\ reinforced patient's understanding of fall precautions, Hourly rounding (assess needs \T\ fall precautionary measures) done. Abuse screen: Denies threats or abuse. Nutritional screening: No deficits noted. Tuberculosis screening: No symptoms or risk factors identified. Assessment: 00:02 Reassessment: No changes from previously documented assessment. Patient is alert, dd2 oriented x 3, equal unlabored respirations, skin warm/dry/pink. SEE TRIAGE ASSESSMENT FOR FULL ASSESSMENT Patient denies pain at this time. 02:56 Reassessment: Patient and/or family updated on plan of care and expected duration. Pain dd2 level reassessed. Patient is alert, oriented x 3, equal unlabored respirations, skin warm/dry/pink. Patient denies pain at this time. Patient states feeling better. Vital Signs: 05/02 23:47 BP 119 / 83; Pulse 83; Resp 17 S; Temp 97.4; Pulse Ox 99% on R/A; Weight 74.84 kg; ha1 Height 5 ft. 3 in. ; 05/03 00:36 BP 115 / 81; Pulse 81; Resp 16; Pulse Ox 98% ; Pain 0/10; dd2 01:30 BP 119 / 83; Pulse 79; Resp 16; Pulse Ox 99% ; dd2 02:36 BP 110 / 78; Pulse 78; Resp 16; Pulse Ox 100% ; dd2 02:56 BP 116 / 75; Pulse 76; Resp 16; Temp 98.1; Pulse Ox 99% ; Pain 0/10; dd2 05/02 23:47 Body Mass Index 29.23 (74.84 kg, 160.02 cm) ha1 05/03 00:36 Pain Scale: Adult dd2 02:56 Pain Scale: Adult dd2 [place] Coma Score: 00:36 Eye Response: spontaneous(4). Motor Response: obeys commands(6). Verbal Response: dd2 oriented(5). Total: 15. ED Course: 05/02 23:36 Patient arrived in ED. mr 23:37 Estrellita Her MD is Attending Physician. sp3 23:58 GLADIS WILLOUGHBY, JOESPH is Primary Nurse. dd2 05/03 00:05 Triage completed. ha1 00:35 Flu Sent. dd2 00:35 SARS RAPID Sent. dd2 00:35 Abo/rh Typing Sent. dd2 00:35 Basic Metabolic Panel Sent. dd2 00:35 CBC with Diff Sent. dd2 00:35 Quantitative Hcg Sent. dd2 00:36 Urinalysis w/ reflexes Sent. dd2 00:36 No provider procedures requiring assistance completed. Initial lab(s) drawn, by me, dd2 sent to lab. Urine collected: clean catch specimen, cloudy. Inserted saline lock: 20 gauge in right antecubital area, using aseptic technique. Blood collected. Flushed with 10 mL NS. Patient maintains SpO2 saturation greater than 95% on room air. 00:36 Patient has correct armband on for positive identification. Bed in low position. Call dd2 light in reach. Side rails up X 1. Client placed on continuous cardiac and pulse oximetry monitoring. NIBP monitoring applied. Door closed. Noise minimized. Pillow given. Verbal reassurance given. 01:15 Transvaginal Ob In Process Unspecified. EDMS 03:05 IV discontinued, intact, bleeding controlled, No redness/swelling at site. Pressure dd2 dressing applied. 03:06 Provided Education on: D/C INSTRUCTIONS, MEDICATIONS. dd2 Administered Medications: 00:55 Drug: NS 0.9% IV 500 ml IV at calculated rate once; to be given as a bolus over 30 dd2 minutes Route: IV; Rate: calculated rate; Site: right antecubital; 01:10 Follow up: Response: No adverse reaction dd2 01:25 Follow up: IV Status: Completed infusion; IV Intake: 500ml dd2 02:52 Drug: Rocephin IV 1 grams IV at calculated rate once; Given slow IV push per pharmacy dd2 instructions Route: IV; Rate: calculated rate; Site: right antecubital; 03:06 Follow up: Response: Medication administered at discharge.; IV Status: Completed dd2 infusion Medication: 00:36 VIS not applicable for this client. dd2 Intake: 01:25 IV: 500ml; Total: 500ml. dd2 Outcome: 02:18 Discharge ordered by . sp3 03:05 Discharged to home ambulatory, dd2 03:05 Condition: stable 03:05 Discharge instructions given to patient, Instructed on discharge instructions, follow up and referral plans. medication usage, Demonstrated understanding of instructions, follow-up care, medications, Prescriptions given X 1, 03:12 Patient left the ED. dd2 Signatures: Dispatcher [employer] [facility] Brie Gupta, [address] Estrellita Her MD MD sp3 Verna Do RN RN ha1 GLADIS WILLOUGHBY RN RN dd2
[2024-05-03] MEDS ORDERED: CEFTRIAXONE 1000 MG/VIAL ONE (02:48)
[2024-05-03 07:23] VITALS: BP 116/75; TEMP 98.1; O2SAT 99
== END 2024-05-03 03:12 | disposition home or self-care (01) ==
LOC: ER 23:34
DX: N39.0 Urinary tract infection, site not specified (principal)
CPT/HCPCS: 36415; 76817; 80048; 81001; 84702; 85025; 86900; 86901; 87086; 87088; 87804; 87811; 96374; 99284; J0696; J7040